=== PATIENT | male | born 1940 | race African-American/Black ===

== ENCOUNTER 2016-06-04 10:26 | Emergency (ER) | payer BC, OTHER ==
[~2016-06-04] VITALS: Ht 185.4 cm; Wt 88.6 kg
[~2016-06-04 10:26] MED LIST: ASPI81TA42 PO; CYCL10 PO; DOCU250C76 PO; ESOM20CA31 PO; ISOS30TA6 PO; METF500T4 PO; MULT-36 PO; SIMV40TA5 PO; TAMS0.4C32 PO; TRAZ150T85 PO
[2016-06-04 10:47] LABS: GLUCOSE,POINT OF CARE 90 MG/DL (70-110)
[2016-06-04] MEDS ORDERED: ACETAMINOPHEN 325 MG TABLET PO ONE (12:00)
[2016-06-04 13:23] VITALS: BP 147/86
[2016-06-04 13:52] LABS: GLUCOSE,POINT OF CARE 104 MG/DL (70-110)
== END 2016-06-04 13:51 | disposition home or self-care (01) ==
LOC: EMS 10:27
DX: J06.9 Acute upper respiratory infection, unspecified (principal); J02.8 Acute pharyngitis due to other specified organisms; B97.89 Other viral agents as the cause of diseases classified elsewhere; R51 Headache; J30.9 Allergic rhinitis, unspecified; Z91.041 Radiographic dye allergy status
CPT/HCPCS: 71020; 82962; 87430; 99285

== ENCOUNTER 2016-07-11 18:41 | Emergency (ER) | payer BC, OTHER ==
[~2016-07-11] VITALS: Ht 185.4 cm; Wt 86.0 kg
[2016-07-11 19:37] LABS: GLUCOSE,POINT OF CARE 100 MG/DL (70-110)
[2016-07-11] MEDS ORDERED: IBUPROFEN 800 MG TABLET PO ONE (20:00)
[2016-07-11] MEDS ORDERED: ACETAMINOPHEN/CODEINE 300-30 MG TABLET PO ONE (22:00)
[2016-07-11] MEDS ORDERED: CYCLOBENZAPRINE HCL 10 MG TABLET PO ONE (22:00)
[2016-07-11 23:33] VITALS: BP 125/78
== END 2016-07-11 23:34 | disposition home or self-care (01) ==
LOC: EMS 18:46
DX: S13.4XXA Sprain of ligaments of cervical spine, initial encounter (principal); S39.012A Strain of muscle, fascia and tendon of lower back, initial encounter; E11.9 Type 2 diabetes mellitus without complications; I10 Essential (primary) hypertension; E78.00 Pure hypercholesterolemia, unspecified; K21.9 Gastro-esophageal reflux disease without esophagitis; Z91.041 Radiographic dye allergy status; Z87.891 Personal history of nicotine dependence; V49.49XA Driver injured in collision with other motor vehicles in traffic accident, initial encounter; Y93.89 Activity, other specified; Y92.89 Other specified places as the place of occurrence of the external cause; Y99.8 Other external cause status
CPT/HCPCS: 70450; 72070; 72100; 72125; 82962; 99284

== ENCOUNTER 2016-11-16 08:01 | Day surgery (SDC) | payer MEDICAID, OTHER ==
[~2016-11-16] VITALS: Ht 182.9 cm; Wt 89.0 kg
[~2016-11-16 08:01] MED LIST changes: +ASCO500 PO; +DOCU250C16 PO; -DOCU250C76 PO; +FINA5TAB41 PO; +GABA-531 PO; +SODIUM CHLORIDE 0.9% 1,000 ML IV ONE; +TRAZ150T79 PO; -TRAZ150T85 PO
[2016-11-16] MEDS ORDERED: SODIUM CHLORIDE 0.9% 1,000 ML IV ONE (08:22)
[2016-11-16 09:17] LABS: GLUCOSE,POINT OF CARE 99 MG/DL (70-110)
[2016-11-16] MEDS ORDERED: FentaNYL CITRATE-PF 100 MCG/2 ML VIAL ONE (09:22)
[2016-11-16] MEDS ORDERED: MIDAZOLAM HCL 5 MG/ML VIAL ONE (09:22)
== END 2016-11-16 11:15 | disposition home or self-care (01) ==
LOC: SURGERY 08:01
PROVIDERS: ATTEND Internal Medicine Gastroenterology
DX: K63.5 Polyp of colon (principal); K64.0 First degree hemorrhoids; K21.9 Gastro-esophageal reflux disease without esophagitis; E11.9 Type 2 diabetes mellitus without complications; I10 Essential (primary) hypertension; E78.5 Hyperlipidemia, unspecified; M54.9 Dorsalgia, unspecified; N40.0 Benign prostatic hyperplasia without lower urinary tract symptoms; Z91.041 Radiographic dye allergy status; Z79.01 Long term (current) use of anticoagulants; Z98.890 Other specified postprocedural states
CPT/HCPCS: 45380; 82962; 88305; J2250; J3010; J7030

== ENCOUNTER 2017-12-01 22:38 | Emergency (ER) | payer BC, OTHER ==
[~2017-12-01] VITALS: Ht 185.4 cm; Wt 90.9 kg
[~2017-12-01 22:38] MED LIST changes: +METF-960 PO; -METF500T4 PO; -SODIUM CHLORIDE 0.9% 1,000 ML IV ONE
[2017-12-02 00:19] LABS: APPEARANCE,URINE CLEAR (CLEAR); BILIRUBIN,URINE NEGATIVE (NEGATIVE); GLUCOSE, URINE (UA) NEGATIVE (NEGATIVE); KETONES,URINE NEGATIVE (NEGATIVE); LEUKOCYTE ESTERASE ,URINE NEGATIVE (NEGATIVE); NITRATE,URINE NEGATIVE (NEGATIVE); OCCULT BLOOD,URINE TRACE (NEGATIVE); PH,URINE 5.5 (5.0-8.0); PROTEIN,URINE NEGATIVE (NEGATIVE); UROBILINOGEN,URINE 0.2 mg/dL (<=1.0)
[2017-12-02 00:35] LABS: BACTERIA,URINE None Seen /HPF (None Seen); RBC,URINE 0-2 /HPF (0-2); SQUAMOUS EPITHELIAL CELL,UR Rare /LPF (None Seen); WBC,URINE 0-2 /HPF (0-5)
[2017-12-02 01:00] VITALS: BP 118/71
[2017-12-02 16:19] LABS: GLUCOSE,POINT OF CARE 155 MG/DL (70-110)
== END 2017-12-02 01:30 | disposition home or self-care (01) ==
LOC: EMS 22:39
DX: S30.813A Abrasion of scrotum and testes, initial encounter (principal); K21.9 Gastro-esophageal reflux disease without esophagitis; I10 Essential (primary) hypertension; E11.9 Type 2 diabetes mellitus without complications; E78.00 Pure hypercholesterolemia, unspecified; Z91.041 Radiographic dye allergy status; Z79.899 Other long term (current) drug therapy; Z87.891 Personal history of nicotine dependence; X58.XXXA Exposure to other specified factors, initial encounter; Y93.89 Activity, other specified; Y92.89 Other specified places as the place of occurrence of the external cause; Y99.8 Other external cause status
CPT/HCPCS: 99283

== ENCOUNTER 2018-08-29 16:58 | Emergency (ER) | payer BC, OTHER ==
[~2018-08-29] VITALS: Ht 188 cm; Wt 84.1 kg
[~2018-08-29 16:58] MED LIST changes: +ASPI81TA40 PO; -ASPI81TA42 PO; +BACL10TA PO; -CYCL10 PO; -ISOS30TA6 PO; +ISOS60TA4 PO; -METF-960 PO; +METF500T7 PO; +SIMV-259 PO; -SIMV40TA5 PO
[2018-08-29 17:14] LABS: GLUCOSE,POINT OF CARE 134 MG/DL (70-110)
[2018-08-29 17:35] VITALS: BP 115/55
[2018-08-29] MEDS ORDERED: HYDROCODONE/ACETAMINOPHEN 5-325 MG TABLET PO ONE (17:45)
== END 2018-08-29 18:41 | disposition home or self-care (01) ==
LOC: EMS 17:00
DX: B02.9 Zoster without complications (principal); E11.9 Type 2 diabetes mellitus without complications; E78.00 Pure hypercholesterolemia, unspecified; I10 Essential (primary) hypertension; Z87.891 Personal history of nicotine dependence; Z79.82 Long term (current) use of aspirin; Z79.899 Other long term (current) drug therapy; Z79.84 Long term (current) use of oral hypoglycemic drugs; Z91.041 Radiographic dye allergy status

== ENCOUNTER → 2019-02-06 | Outpatient (CLI) | payer BC, OTHER ==
[~2019-02-06] MED LIST changes: +METF500T20 PO; -METF500T7 PO; +TAMS-13 PO; -TAMS0.4C32 PO
== END | disposition home or self-care (01) ==
LOC: PUC 15:48
DX: R05 Cough (principal)

== ENCOUNTER 2020-03-12 12:22 | Emergency (ER) | payer MEDICARE, OTHER ==
[~2020-03-12] VITALS: Ht 177.8 cm; Wt 79.5 kg
[~2020-03-12 12:22] MED LIST changes: +FINA-27 PO; -FINA5TAB41 PO; +GABA-1181 PO; -GABA-531 PO; +METF-911 PO; -METF500T20 PO
[2020-03-12] MEDS ORDERED: GuaiFENesin/D-METHORPHAN [SUGAR-FREE] 200-20MG/10 ML SYRUP UDCUP PO ONE (13:15)
[2020-03-12] MEDS ORDERED: ACETAMINOPHEN 500 MG TABLET PO ONE (13:15)
[2020-03-12 13:52] LABS: BASOPHILS % (AUTO) 0.8 % (0.0-2.0); EOSINOPHILS % (AUTO) 0.4 % (1.0-6.0); HEMOGLOBIN 12.8 g/dL (13.5-17.5); LYMPHOCYTES # (AUTO) 0.7 K/uL (1.0-4.8); LYMPHOCYTES % (AUTO) 30.9 % (22.0-44.0); MEAN CORPUSCULAR HGB CONC 32.8 G/dL (31.0-37.0); MEAN CORPUSCULAR VOLUME 98 fL (80-100); MONOCYTES # (AUTO) 0.4 K/uL (0.1-1.0); MONOCYTES % (AUTO) 17.4 % (2.0-9.0); NEUTROPHILS # (AUTO) 1.2 K/uL (1.8-7.7); NEUTROPHILS % (AUTO) 50.5 % (40.0-70.0); PLATELET COUNT (AUTO) 93 K/uL (150-450); RED CELL DISTRIBUTION WIDTH 12.5 % (11.5-14.5)
[2020-03-12 14:20] VITALS: BP 132/74
[2020-03-12 14:21] LABS: CALCIUM, TOTAL 8.6 mg/dL (8.8-10.5); CREATININE 1.55 mg/dL (0.60-1.30); POTASSIUM 4.1 mmol/L (3.5-5.1)
[2020-03-12 14:23] LABS: COVID AG,FIA SOURCE NASOPHARYNGEAL
[2020-03-12 14:26] LABS: ALBUMIN 3.3 g/dL (3.4-5.0); BILIRUBIN,TOTAL 0.3 mg/dL (0.1-1.0); TOTAL PROTEIN, SERUM 7.2 g/dL (6.4-8.2)
== END 2020-03-12 15:25 | disposition home or self-care (01) ==
LOC: EMS 12:30
DX: U07.1 COVID-19 (principal)
CPT/HCPCS: 87426; 93005; 36415-L1; 36415-TC; 71045-TC

== ENCOUNTER 2021-12-12 18:01 | Emergency (ER) | payer MEDICARE, OTHER ==
[~2021-12-12] VITALS: Ht 185.4 cm; Wt 92.3 kg
[~2021-12-12 18:01] MED LIST changes: -ISOS60TA4 PO; +ISOS60TA77 PO; +METF-81 PO; -METF-911 PO
[2021-12-12 19:30] VITALS: BP 132/77
[2021-12-12] MEDS ORDERED: BACITRACIN 0.9 GM PACKET OINTMENT TP ONE (19:30)
[2021-12-12] MEDS ORDERED: DOXYCYCLINE HYCLATE 100 MG TABLET PO ONE (19:30)
[2021-12-12] MEDS ORDERED: CIPROFLOXACIN HCL 250 MG TABLET PO ONE (19:30)
[2021-12-12] MEDS ORDERED: ACETAMINOPHEN 500 MG TABLET PO ONE (19:30)
[2021-12-12] MEDS ORDERED: PERTUSS(ACELL),DIPH,TET VAC/PF 0.5 ML SYRINGE IM. ONE (19:30)
[2021-12-12] MEDS ORDERED: CIPR250T6 PO (19:48)
[2021-12-12] MEDS ORDERED: DOXY-354 PO (19:48)
== END 2021-12-12 20:43 | disposition home or self-care (01) ==
LOC: EMS 18:01
DX: S91.331A Puncture wound without foreign body, right foot, initial encounter (principal); E11.9 Type 2 diabetes mellitus without complications; E78.00 Pure hypercholesterolemia, unspecified; I10 Essential (primary) hypertension; N40.0 Benign prostatic hyperplasia without lower urinary tract symptoms; Z87.891 Personal history of nicotine dependence; Z91.040 Latex allergy status; W22.8XXA Striking against or struck by other objects, initial encounter; Y93.89 Activity, other specified; Y92.89 Other specified places as the place of occurrence of the external cause; Y99.8 Other external cause status
CPT/HCPCS: 82962; 90471; 90715; 99284

== ENCOUNTER 2022-01-25 15:02 | Inpatient (IN) | payer MEDICARE, OTHER ==
[~2022-01-25] VITALS: Ht 182.9 cm; Wt 92.0 kg
[~2022-01-25 15:02] MED LIST changes: -ASCO500 PO; -BACL10TA PO; +CIPR250T6 PO; +DOXY-354 PO
[2022-01-25] MEDS ORDERED: MAG HYDROX/AL HYDROX/SIMETH 30 ML SUSP UDCUP PO ONE (15:15)
[2022-01-25] MEDS ORDERED: ASPIRIN 325 MG TABLET PO ONE (15:15)
[2022-01-25] MEDS ORDERED: FAMOTIDINE 10 MG/ML 2 ML VIAL IVP ONE (15:15)
[2022-01-25 15:42] LABS: BASOPHILS % (AUTO) 0.8 % (0.0-2.0); COVID AG,FIA SOURCE NASOPHARYNGEAL; EOSINOPHILS % (AUTO) 4.6 % (1.0-6.0); HEMATOCRIT 35.5 % (41-53); HEMOGLOBIN 11.7 g/dL (13.5-17.5); LYMPHOCYTES # (AUTO) 1.7 K/uL (1.0-4.8); LYMPHOCYTES % (AUTO) 35.3 % (22.0-44.0); MEAN CORPUSCULAR HEMOGLOBIN 32.6 pg (26.0-34.0); MEAN CORPUSCULAR HGB CONC 32.9 G/dL (31.0-37.0); MEAN CORPUSCULAR VOLUME 99 fL (80-100); MONOCYTES # (AUTO) 0.6 K/uL (0.1-1.0); MONOCYTES % (AUTO) 13.1 % (2.0-9.0); NEUTROPHILS # (AUTO) 2.2 K/uL (1.8-7.7); NEUTROPHILS % (AUTO) 46.2 % (40.0-70.0); PLATELET COUNT (AUTO) 119 K/uL (150-450); RED BLOOD CELL COUNT(AUTO) 3.58 MIL/uL (4.50-5.90); RED CELL DISTRIBUTION WIDTH 12.5 % (11.5-14.5)
[2022-01-25 15:54] LABS: ANION GAP 3 mmol/L (8-16); CALCIUM, TOTAL 9.1 mg/dL (8.8-10.5); CARBON DIOXIDE 29 mmol/L (22-29); CHLORIDE 105 mmol/L (98-107); CREATININE 1.23 mg/dL (0.60-1.30); GLOMERULAR FILTR. RATE CALC > 60 mL/min (>60); GLUCOSE,RANDOM 108 mg/dL (70-110); POTASSIUM 3.9 mmol/L (3.5-5.1); SODIUM SERUM 137 mmol/L (136-145); UREA NITROGEN, BLOOD 13 mg/dL (7-18)
[2022-01-25 16:09] LABS: ALANINE AMINOTRANSFERASE 20 U/L (12-78); ALBUMIN 3.4 g/dL (3.4-5.0); ALKALINE PHOSPHATASE 69 U/L (46-116); ASPARTATE AMINOTRANSFERASE 23 U/L (15-37); BILIRUBIN,TOTAL 0.2 mg/dL (0.1-1.0); CREATINE KINASE, TOTAL ONLY 329 U/L (39-308); PHOSPHORUS 2.9 mg/dL (2.5-4.9); TOTAL PROTEIN, SERUM 6.4 g/dL (6.4-8.2)
[2022-01-25 16:12] LABS: INR 1.1 (0.9-1.1); PROTHROMBIN TIME 11.2 SEC (9.4-11.6)
[2022-01-25 16:47] LABS: B-TYPE NATRIURETIC PEPTIDE 42 pg/mL (0-100)
[2022-01-25] MEDS ORDERED: 0.9% SODIUM CHLORIDE 10 ML SYRINGE IVP PRN (17:15)
[2022-01-25] MEDS ORDERED: ONDANSETRON HCL 4 MG/2 ML VIAL IVP PRN ×2 (17:15→19:30)
[2022-01-25] MEDS ORDERED: ACETAMINOPHEN 325 MG TABLET PO PRN ×2 (17:15→19:30)
[2022-01-25] MEDS ORDERED: MAGNESIUM HYDROXIDE SUSPENSION 30 ML UDCUP PO PRN (19:30)
[2022-01-25] MEDS ORDERED: MORPHINE SULFATE 2 MG/ML SYRINGE IVP PRN (19:30)
[2022-01-25] MEDS ORDERED: DEXTROSE 50%-WATER 25 GM/50 ML SYRINGE IVP PRN (19:30)
[2022-01-25] MEDS ORDERED: INSULIN LISPRO 100 UNITS/ML SQ PRN (19:30)
[2022-01-25] MEDS ORDERED: HYDROCODONE/ACETAMINOPHEN 5-325 MG TABLET PO PRN (19:30)
[2022-01-25] MEDS ORDERED: BISACODYL 10 MG RECTAL RECTAL SUPPOSITORY PR PRN (19:30)
[2022-01-25] MEDS ORDERED: ZOLPIDEM TARTRATE 5 MG TABLET PO PRN (19:30)
[2022-01-25] MEDS ORDERED: TraZODone HCL 150 MG TABLET PO SCH (21:00)
[2022-01-25] MEDS: DOCUSATE SODIUM 100 MG CAPSULE PO SCH (21:00)
[2022-01-25 21:33] VITALS: BP 146/69
[2022-01-26 05:08] VITALS: BP 146/67
[2022-01-26 06:16] LABS: GLUCOMETER DEV NAME(LOC) 5S.2B; GLUCOSE,POINT OF CARE 110 MG/DL (70-110)
[2022-01-26 06:42] LABS: BASOPHILS % (AUTO) 0.7 % (0.0-2.0); HEMATOCRIT 37.8 % (41-53); HEMOGLOBIN 12.6 g/dL (13.5-17.5); LYMPHOCYTES # (AUTO) 1.7 K/uL (1.0-4.8); LYMPHOCYTES % (AUTO) 35.5 % (22.0-44.0); MEAN CORPUSCULAR HEMOGLOBIN 32.9 pg (26.0-34.0); MEAN CORPUSCULAR HGB CONC 33.4 G/dL (31.0-37.0); MEAN CORPUSCULAR VOLUME 99 fL (80-100); MONOCYTES # (AUTO) 0.5 K/uL (0.1-1.0); MONOCYTES % (AUTO) 11.3 % (2.0-9.0); NEUTROPHILS # (AUTO) 2.3 K/uL (1.8-7.7); NEUTROPHILS % (AUTO) 47.5 % (40.0-70.0); PLATELET COUNT (AUTO) 113 K/uL (150-450); RED BLOOD CELL COUNT(AUTO) 3.83 MIL/uL (4.50-5.90); RED CELL DISTRIBUTION WIDTH 12.6 % (11.5-14.5)
[2022-01-26 07:05] LABS: ALANINE AMINOTRANSFERASE 16 U/L (12-78); ALBUMIN 3.2 g/dL (3.4-5.0); ALKALINE PHOSPHATASE 66 U/L (46-116); ANION GAP 4 mmol/L (8-16); ASPARTATE AMINOTRANSFERASE 21 U/L (15-37); BILIRUBIN,TOTAL 0.4 mg/dL (0.1-1.0); CALCIUM, TOTAL 8.9 mg/dL (8.8-10.5); CARBON DIOXIDE 28 mmol/L (22-29); CHLORIDE 106 mmol/L (98-107); CHOL/HDL RATIO 3.5 (4.2-7.3); CHOLESTEROL 151 mg/dL (131-200); GLOMERULAR FILTR. RATE CALC > 60 mL/min (>60); GLUCOSE,RANDOM 106 mg/dL (70-110); HDL CHOLESTEROL 43 mg/dL (40-60); LDL CHOL (CALC.) 85 mg/dL (0-130); POTASSIUM 4.1 mmol/L (3.5-5.1); SODIUM SERUM 138 mmol/L (136-145); TOTAL PROTEIN, SERUM 6.3 g/dL (6.4-8.2); TRIGLYCERIDES 115 mg/dL (15-150); UREA NITROGEN, BLOOD 11 mg/dL (7-18)
[2022-01-26 07:43] VITALS: BP 156/71
[2022-01-26] MEDS: HEPARIN SODIUM,PORCINE 5,000 UNITS/ML VIAL SQ SCH ×3 (08:00→16:00)
[2022-01-26 08:36] LABS: GLUCOMETER DEV NAME(LOC) 5N.1C; GLUCOSE,POINT OF CARE 95 MG/DL (70-110)
[2022-01-26] MEDS ORDERED: PANTOPRAZOLE SODIUM 40 MG DR TABLET PO SCH (09:00)
[2022-01-26] MEDS: TAMSULOSIN HCL 0.4 MG CAPSULE PO SCH (09:10)
[2022-01-26] MEDS: GABAPENTIN 300 MG CAPSULE PO SCH (09:11)
[2022-01-26] MEDS: SIMVASTATIN 10 MG TABLET PO SCH (09:11)
[2022-01-26] MEDS: ISOSORBIDE MONONITRATE 60 MG ER TABLET PO SCH (09:11)
[2022-01-26] MEDS: FINASTERIDE 5 MG TABLET PO SCH (09:12)
[2022-01-26] MEDS: DOCUSATE SODIUM 100 MG CAPSULE PO SCH ×2 (09:13→21:00)
[2022-01-26] MEDS: ASPIRIN 81 MG CHEWABLE TABLET PO SCH (09:50)
[2022-01-26 10:53] VITALS: BP 118/52
[2022-01-26 14:55] VITALS: BP 108/66
[2022-01-26 17:26] LABS: GLUCOMETER DEV NAME(LOC) 5N.1C; GLUCOSE,POINT OF CARE 100 MG/DL (70-110)
[2022-01-26 20:00] VITALS: BP 114/49
[2022-01-26] MEDS ORDERED: TraZODone HCL 100 MG TABLET PO SCH (21:00)
[2022-01-26 21:21] LABS: GLUCOMETER DEV NAME(LOC) 5S.1B; GLUCOSE,POINT OF CARE 104 MG/DL (70-110)
[2022-01-26] MEDS: PANTOPRAZOLE SODIUM 40 MG DR TABLET PO SCH (21:29)
[2022-01-27] VITALS: BP 104/52
[2022-01-27] MEDS: HEPARIN SODIUM,PORCINE 5,000 UNITS/ML VIAL SQ SCH ×2 (00:37→08:00)
[2022-01-27 04:00] VITALS: BP 103/51
[2022-01-27 08:12] VITALS: BP 100/48
[2022-01-27 08:31] LABS: GLUCOMETER DEV NAME(LOC) 5S.1B; GLUCOSE,POINT OF CARE 104 MG/DL (70-110)
[2022-01-27 08:31] LABS: GLUCOMETER DEV NAME(LOC) 5S.2B; GLUCOSE,POINT OF CARE 109 MG/DL (70-110)
[2022-01-27 09:00] VITALS: BP 116/62
[2022-01-27] MEDS: GABAPENTIN 300 MG CAPSULE PO SCH (09:00)
[2022-01-27 09:14] LABS: ANION GAP 7 mmol/L (8-16); CALCIUM, TOTAL 8.8 mg/dL (8.8-10.5); CARBON DIOXIDE 26 mmol/L (22-29); CHLORIDE 103 mmol/L (98-107); CREATININE 1.34 mg/dL (0.60-1.30); GLUCOSE,RANDOM 176 mg/dL (70-110); POTASSIUM 4.1 mmol/L (3.5-5.1); SODIUM SERUM 136 mmol/L (136-145); UREA NITROGEN, BLOOD 16 mg/dL (7-18)
[2022-01-27 09:18] LABS: GLOMERULAR FILTR. RATE CALC > 60 mL/min (>60)
[2022-01-27] MEDS: ISOSORBIDE MONONITRATE 60 MG ER TABLET PO SCH (09:21)
[2022-01-27] MEDS: SIMVASTATIN 10 MG TABLET PO SCH (09:21)
[2022-01-27] MEDS: TAMSULOSIN HCL 0.4 MG CAPSULE PO SCH (09:21)
[2022-01-27] MEDS: PANTOPRAZOLE SODIUM 40 MG DR TABLET PO SCH (09:21)
[2022-01-27] MEDS: DOCUSATE SODIUM 100 MG CAPSULE PO SCH (09:22)
[2022-01-27] MEDS: FINASTERIDE 5 MG TABLET PO SCH (09:22)
[2022-01-27] MEDS: ASPIRIN 81 MG CHEWABLE TABLET PO SCH (09:22)
[2022-01-27 11:00] VITALS: BP 98/62
[2022-01-27] MEDS ORDERED: ASPI81 PO (11:26)
[2022-01-27] MEDS ORDERED: ISOS60TA77 PO (11:26)
[2022-01-27] MEDS ORDERED: PANT-31 PO (11:26)
[2022-01-28 22:01] LABS: GLUCOMETER DEV NAME(LOC) 5S.2B; GLUCOSE,POINT OF CARE 89 MG/DL (70-110)
== END 2022-01-27 13:15 | disposition home or self-care (01) | DRG 392 ==
LOC: EMS 15:07 → 5S 18:30
PROVIDERS: ADMIT Internal Medicine; ATTEND Internal Medicine
DX: K21.9 Gastro-esophageal reflux disease without esophagitis (principal); I20.0 Unstable angina; I10 Essential (primary) hypertension; E11.9 Type 2 diabetes mellitus without complications; N40.0 Benign prostatic hyperplasia without lower urinary tract symptoms; E78.5 Hyperlipidemia, unspecified; D64.9 Anemia, unspecified; D69.6 Thrombocytopenia, unspecified; Z20.822 Contact with and (suspected) exposure to COVID-19; E78.00 Pure hypercholesterolemia, unspecified; Z79.899 Other long term (current) drug therapy; Z91.041 Radiographic dye allergy status; Z79.82 Long term (current) use of aspirin; Z87.891 Personal history of nicotine dependence
CPT/HCPCS: 71045; 80048; 80053; 80061; 82550; 82962; 83735; 83880; 84100; 84484; 85025; 85610; 85730; 93005; 93306; 99285; J1644; J3490; 36415-L1; 36415-TC

== ENCOUNTER → 2022-03-21 | Outpatient (CLI) | payer MEDICARE, OTHER ==
[~2022-03-21] MED LIST changes: +AMINOPHYLLINE 25 MG/ML 10 ML VIAL IVP PRN; +ASPI81 PO; -ASPI81TA40 PO; -CIPR250T6 PO; -DOCU250C16 PO; -DOXY-354 PO; -ESOM20CA31 PO; +PANT-31 PO; +REGADENOSON 0.4 MG/5 ML PF SYRINGE IVP ONE; +SESTAMIBI TC99M/UD ISOTOPE 1 EA INJ INJ ONE
[2022-03-21 10:43] VITALS: BP 144/85
[2022-03-21 10:51] VITALS: BP 135/84
== END | disposition home or self-care (01) ==
LOC: CARDMN 08:37
PROVIDERS: ATTEND Internal Medicine
DX: R07.9 Chest pain, unspecified (principal); K21.9 Gastro-esophageal reflux disease without esophagitis
CPT/HCPCS: 78452; A9500

== ENCOUNTER 2022-05-12 11:58 | Emergency (ER) | payer MEDICARE, OTHER ==
[~2022-05-12] VITALS: Ht 182.9 cm; Wt 88.6 kg
[~2022-05-12 11:58] MED LIST changes: -AMINOPHYLLINE 25 MG/ML 10 ML VIAL IVP PRN; -REGADENOSON 0.4 MG/5 ML PF SYRINGE IVP ONE; -SESTAMIBI TC99M/UD ISOTOPE 1 EA INJ INJ ONE
[2022-05-12] MEDS ORDERED: ACETAMINOPHEN 500 MG TABLET PO ONE (13:15)
[2022-05-12] MEDS ORDERED: FERR325T23 PO (13:16)
[2022-05-12] MEDS ORDERED: ISOS30TA68 PO (13:16)
[2022-05-12] MEDS ORDERED: METF-1211 PO (13:16)
[2022-05-12] MEDS ORDERED: FAMO20 PO (13:16)
[2022-05-12] MEDS ORDERED: MULT-248 PO (13:16)
[2022-05-12 15:47] VITALS: BP 138/79
[2022-05-12] MEDS ORDERED: ACET-66 PO (16:29)
== END 2022-05-12 17:22 | disposition home or self-care (01) ==
LOC: EMS 13:23
DX: S13.4XXA Sprain of ligaments of cervical spine, initial encounter (principal); S39.012A Strain of muscle, fascia and tendon of lower back, initial encounter; M47.896 Other spondylosis, lumbar region; M48.34 Traumatic spondylopathy, thoracic region; E11.9 Type 2 diabetes mellitus without complications; E78.00 Pure hypercholesterolemia, unspecified; I11.9 Hypertensive heart disease without heart failure; N40.0 Benign prostatic hyperplasia without lower urinary tract symptoms; Z87.891 Personal history of nicotine dependence; Z98.890 Other specified postprocedural states; V49.9XXA Car occupant (driver) (passenger) injured in unspecified traffic accident, initial encounter; Y93.89 Activity, other specified; Y92.89 Other specified places as the place of occurrence of the external cause; Y99.8 Other external cause status
CPT/HCPCS: 71045; 72040; 72070; 72100; 72170; 82962; 99283

== ENCOUNTER 2022-12-08 10:37 | Emergency (ER) | payer OTHER, MEDICAID ==
[~2022-12-08] VITALS: Ht 185.4 cm; Wt 88.6 kg
[~2022-12-08 10:37] MED LIST changes: +ACET-66 PO; +FAMO20 PO; +FERR325T23 PO; +ISOS30TA68 PO; -ISOS60TA77 PO; +METF-1211 PO; -METF-81 PO; +MULT-248 PO; -MULT-36 PO; -PANT-31 PO; -TAMS-13 PO; +TAMS0.4C34 PO
[2022-12-08 10:41] VITALS: TEMP 98.4
[2022-12-08] MEDS ORDERED: TRAM-559 PO (14:16)
[2022-12-08 14:26] VITALS: BP 132/63; PULSE 73; RESP 16
== END 2022-12-08 14:36 | disposition home or self-care (01) ==
LOC: EMS 10:37
DX: M25.512 Pain in left shoulder (principal); E11.9 Type 2 diabetes mellitus without complications; E78.00 Pure hypercholesterolemia, unspecified; I10 Essential (primary) hypertension; N40.0 Benign prostatic hyperplasia without lower urinary tract symptoms; Z87.891 Personal history of nicotine dependence; Z98.890 Other specified postprocedural states; Z91.040 Latex allergy status
CPT/HCPCS: 82962; 99283

== ENCOUNTER 2023-12-23 07:57 | Emergency (ER) | payer OTHER, MEDICAID ==
[~2023-12-23] VITALS: Ht 180.3 cm; Wt 77.3 kg
[~2023-12-23 07:57] MED LIST changes: -TAMS0.4C34 PO; +TAMS0.4C94 PO; +TRAM50TA5 PO
[2023-12-23 08:01] VITALS: BP 144/57; PULSE 80; RESP 18; TEMP 97.9; O2SAT 100
[2023-12-23] MEDS ORDERED: SIMV10TA97 PO (08:06)
[2023-12-23] MEDS ORDERED: LOSA-381 PO (08:06)
[2023-12-23 08:46] LABS: BASOPHILS % (AUTO) 0.3 % (0.0-2.0); HEMATOCRIT 38.9 % (41-53); HEMOGLOBIN 12.9 g/dL (13.5-17.5); LYMPHOCYTES # (AUTO) 0.8 K/uL (1.0-4.8); LYMPHOCYTES % (AUTO) 10.7 % (22.0-44.0); MEAN CORPUSCULAR HEMOGLOBIN 33.1 pg (26.0-34.0); MEAN CORPUSCULAR HGB CONC 33.1 G/dL (31.0-37.0); MEAN CORPUSCULAR VOLUME 100 fL (80-100); MONOCYTES # (AUTO) 0.7 K/uL (0.1-1.0); NEUTROPHILS # (AUTO) 5.9 K/uL (1.8-7.7); PLATELET COUNT (AUTO) 121 K/uL (150-450); RED BLOOD CELL COUNT(AUTO) 3.89 MIL/uL (4.50-5.90); RED CELL DISTRIBUTION WIDTH 12.6 % (11.5-14.5); WHITE BLOOD COUNT (AUTO) 7.6 K/uL (4.5-11.0)
[2023-12-23 09:20] LABS: ANION GAP 11 mmol/L (8-16); CALCIUM, TOTAL 8.5 mg/dL (8.8-10.5); CARBON DIOXIDE 23 mmol/L (22-29); CHLORIDE 105 mmol/L (98-107); CREATININE 1.16 mg/dL (0.60-1.30); GLOMERULAR FILTR. RATE CALC > 60 mL/min (>60); GLUCOSE,RANDOM 114 mg/dL (70-110); POTASSIUM 4.4 mmol/L (3.5-5.1); SODIUM SERUM 138 mmol/L (136-145); UREA NITROGEN, BLOOD 14 mg/dL (7-18)
[2023-12-23 09:26] LABS: ALANINE AMINOTRANSFERASE 20 U/L (12-78); ALBUMIN 3.4 g/dL (3.4-5.0); ALKALINE PHOSPHATASE 72 U/L (46-116); ASPARTATE AMINOTRANSFERASE 21 U/L (15-37); BILIRUBIN,TOTAL 0.4 mg/dL (0.1-1.0); LIPASE 106 U/L (16-77); TOTAL PROTEIN, SERUM 6.7 g/dL (6.4-8.2)
[2023-12-23] MEDS: SODIUM CHLORIDE 0.9% 1,000 ML IV ONE (09:32)
[2023-12-23] MEDS: FAMOTIDINE 20 MG/2 ML VIAL IVP ONE (09:32)
[2023-12-23] MEDS: ONDANSETRON HCL 4 MG/2 ML VIAL IVP ONE (09:32)
[2023-12-23] MEDS: ACETAMINOPHEN 500 MG TABLET PO ONE (09:32)
== END 2023-12-23 11:19 | disposition home or self-care (01) ==
LOC: EMS 07:57
DX: R19.7 Diarrhea, unspecified (principal); E11.9 Type 2 diabetes mellitus without complications; E78.00 Pure hypercholesterolemia, unspecified; I10 Essential (primary) hypertension; K21.9 Gastro-esophageal reflux disease without esophagitis; N40.0 Benign prostatic hyperplasia without lower urinary tract symptoms; Z87.891 Personal history of nicotine dependence; Z91.041 Radiographic dye allergy status; Z98.890 Other specified postprocedural states
CPT/HCPCS: 99285; 74176; 96374; 96361; 96375; 80048; 80076; 83690; 85025; 36415; J3490; J2405; J7030

== ENCOUNTER 2024-10-31 09:13 | Emergency (ER) | payer MEDICARE, MEDICAID ==
[~2024-10-31] VITALS: Ht 185.4 cm; Wt 50.0 kg
[~2024-10-31 09:13] MED LIST changes: -ACET-66 PO; -ASPI81 PO; -FAMO20 PO; -GABA-1181 PO; -ISOS30TA68 PO; +LOSA-381 PO; -MULT-248 PO; -TRAM50TA5 PO
[2024-10-31 09:15] VITALS: TEMP 97.9
[2024-10-31 09:36] LABS: COVID AG,FIA SOURCE NASAL SWAB
[2024-10-31 09:36] LABS: GLUCOMETER DEV NAME(LOC) ER.7; GLUCOSE,POINT OF CARE 136 MG/DL (70-110)
[2024-10-31 09:59] LABS: INFLUENZA TYPE A NEGATIVE FOR TYPE A (NEGATIVE); INFLUENZA TYPE B NEGATIVE FOR TYPE B (NEGATIVE)
[2024-10-31 10:02] LABS: SARS-COV2 (COVID) ANTIGEN,FIA Positive (Negative)
[2024-10-31 10:33] LABS: PLATELET COUNT (AUTO) 82 K/uL (150-450); RED BLOOD CELL COUNT(AUTO) 3.44 MIL/uL (4.50-5.90); RED CELL DISTRIBUTION WIDTH 12.9 % (11.5-14.5); WHITE BLOOD COUNT (AUTO) 4.0 K/uL (4.5-11.0)
[2024-10-31 10:44] LABS: CALCIUM, TOTAL 8.2 mg/dL (8.8-10.5); CREATININE 1.4 mg/dL (0.60-1.30); GLOMERULAR FILTR. RATE CALC 58.0 mL/min (>60); GLUCOSE,RANDOM 103.0 mg/dL (70-110); SODIUM SERUM 139.0 mmol/L (136-145); UREA NITROGEN, BLOOD 14.0 mg/dL (7-18)
[2024-10-31 10:49] LABS: ASPARTATE AMINOTRANSFERASE 24.0 U/L (15-37); TOTAL PROTEIN, SERUM 6.2 g/dL (6.4-8.2)
[2024-10-31 10:54] LABS: BAND NEUTROPHILS % (MANUAL) 1 % (0-5); LYMPHOCYTES % (MANUAL) 21 % (22-44); MONOCYTES % (MANUAL) 11 % (2-9); SEGMENTED NEUTROPHILS % 67 % (40-70)
[2024-10-31] MEDS ORDERED: BENZ-227 PO (11:28)
[2024-10-31] MEDS ORDERED: NIRM1TAB13 PO (11:28)
[2024-10-31 12:00] VITALS: BP 117/52; PULSE 91; RESP 17; O2SAT 97
== END 2024-10-31 12:37 | disposition home or self-care (01) ==
LOC: EMS 09:13
DX: U07.1 COVID-19 (principal); J34.89 Other specified disorders of nose and nasal sinuses; R05.9 Cough, unspecified; R50.9 Fever, unspecified; I10 Essential (primary) hypertension; E11.9 Type 2 diabetes mellitus without complications; E78.00 Pure hypercholesterolemia, unspecified; K21.9 Gastro-esophageal reflux disease without esophagitis; Z91.041 Radiographic dye allergy status
CPT/HCPCS: 71045; 80053; 82962; 85025; 87804; 99284; 36415-L1; 36415-TC